=== PATIENT | male | born 1980 | race Two or more races ===

== ENCOUNTER 2018-07-04 13:48 | Outpatient (CLI) | payer OTHER ==
[~2018-07-04 13:48] MED LIST: KETO10TA2 PO
== END 2018-07-04 13:59 | disposition home or self-care (01) ==
LOC: LAB 13:48
DX: J11.1 Influenza due to unidentified influenza virus with other respiratory manifestations (principal)

== ENCOUNTER 2021-02-26 07:00 | Outpatient (CLI) | payer OTHER | END 2021-02-26 07:20 | disposition home or self-care (01) | LOC: PPH VACUNA 07:00 | PROVIDERS: ATTEND Emergency Medicine Pediatric Emergency Medicine | DX: Z23 Encounter for immunization (principal) ==

== ENCOUNTER 2022-12-14 10:44 | Emergency (ER) | payer OTHER ==
[~2022-12-14] VITALS: Ht 160 cm; Wt 74.8 kg
== END 2022-12-14 12:17 | disposition home or self-care (01) ==
LOC: ER 10:44
DX: H10.89 Other conjunctivitis (principal)